=== PATIENT | female | born 1980 | race Asian ===

== ENCOUNTER 2019-06-23 22:12 | Emergency (ER) | payer SELFPAY ==
[~2019-06-23] VITALS: Ht 165.1 cm; Wt 59.9 kg
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
--- NOTE | 2019-06-23 23:37 | NUR ---
Note matilde in [facility] - 06/23/19 at 2343 by SENIAARMYUDITH PT DOES NOTE REPORT AND SOB. NO NEW FACIAL PRODUCT USED RECENTLY.
--- NOTE | 2019-06-23 23:43 | NUR ---
PT DOES NOTE REPORT AND SOB. PT REPORTS NEW FACIAL PRODUCT USED 3 WEEKS AGO
[2019-06-24] MEDS ORDERED: EPINEPHRINE (1:1000) 1 MG/ML AMPUL ONE (00:30)
[2019-06-24] MEDS ORDERED: diphenhydrAMINE HCL 50 MG/ML VIAL ONE (00:30)
[2019-06-24] MEDS ORDERED: methylPREDNISolone SOD SUCC 125 MG/2ML VIAL ONE (00:30)
[2019-06-24] MEDS ORDERED: FAMOTIDINE/PF INJ 20 MG/2 ML VIAL IV ONE (00:31)
[2019-06-24] MEDS: diphenhydrAMINE HCL 50 MG/ML VIAL IV ONE (00:47)
[2019-06-24] MEDS: methylPREDNISolone SOD SUCC 125 MG/2ML VIAL IV ONE (00:48)
[2019-06-24] MEDS: FAMOTIDINE/PF INJ 20 MG/2 ML VIAL IV ONE (00:48)
[2019-06-24] MEDS: EPINEPHRINE (1:1000) MDV 30 MG/30ML VIAL SUBCUT ONE (00:50)
--- NOTE | 2019-06-24 01:48 | NUR ---
Patient discharged to home in stable condition. Written and verbal after care instructions given. Patient verbalizes understanding of instruction. IV removed. Catheter intact and site benign. Pressure and 4x4 applied to site. No bleeding noted.Pt ambulatory with a steady gait
[2019-06-24 01:53] VITALS: BP 144/86
== END 2019-06-24 01:55 | disposition home or self-care (01) ==
LOC: ER 22:14
DX: T78.40XA Allergy, unspecified, initial encounter (principal); J45.909 Unspecified asthma, uncomplicated; X58.XXXA Exposure to other specified factors, initial encounter
CPT/HCPCS: 96372; 96374; 96375; 99283; J0171 ×2; J1200; J2930; J3490